=== PATIENT | male | born 1980 | race Caucasian/White ===

== ENCOUNTER 2016-12-29 15:28 | Emergency (ER) | payer BC, OTHER ==
[~2016-12-29 15:28] MED LIST: Augmentin PO; LISI-538 PO; LORT5TAB PO; MULT1TAB8 PO; NAPR500T2 PO; Vicodin PO
[2016-12-29] MEDS ORDERED: IBUPROFEN 800 MG TAB As Ordered ONE (16:23)
--- NOTE | 2016-12-29 17:33 | EDDOCDS ---
Nurse's Notes [facility] Name: Farshad Durbin Age: 36 yrs Sex: Male : 1980 Arrival Date: 12/29/2016 Time: 15:28 Bed PR Private MD: Diagnosis: Sprain of other specified parts of right knee Presentation: 12/29 15:36 Presenting complaint: Patient states: fell on the ice on and continued pain to pml right knee. Adult Sepsis Screening: The patient does not have new or worsening altered mentation. Patient's respiratory rate is less than 22. Systolic blood pressure is greater than 100. Patient has a qSOFA score of 0- Negative Sepsis Screen. Suicide/Homicide risk assessment- the patient denies having any suicidal and/or homicidal ideations and does not present with any other emotional, behavioral or mental health complaints. Status: Patient is not a customer service advisor or dependent. Transition of care: patient was not received from another setting of care. 15:36 Acuity: MARCY Level 4 pml 15:36 Method Of Arrival: Walkin/Carried/Asstd pml Triage Assessment: 15:37 General: Appears in no apparent distress, Behavior is appropriate for age, cooperative. pml Pain: Location: right knee Pain currently is 7 out of 10 on a pain scale. HIV screening NA for this visit Offered previously. Historical: - Allergies: Red Dye (Rash); - Home Meds: 1. losartan 25 mg oral tab 1 tab once daily - PMHx: Hypertension; - PSHx: Hernia repair; - Social history: No barriers to communication noted, The patient speaks fluent Ugandan, Speaks appropriately for age, Smoking status: Chewing Tobacco. - Family history: Not pertinent. - : The pt / caregiver states he / she is not on anticoagulants. Home medication list is obtained from the patient. - Exposure Risk Screening:: None identified. Screenin:31 Infection Control. bnb 17:29 Screening information is obtained from the patient. Fall risk: No risks identified. pml Assistance ADL's: requires no assistance with activities of daily living. Abuse/DV Screen: The patient / caregiver reports he/she is: not in a situation that causes fear, pain or injury. Nutritional screening: No deficits noted. Advance Directives: Currently, there is no health care proxy. home support is adequate. Assessment: 17:29 General: Appears in no apparent distress, Behavior is appropriate for age, cooperative. pml Pain: Location: right leg and right knee. Neurological: Level of Consciousness is awake, alert, Oriented to person, place, time. Cardiovascular: Capillary refill < 3 seconds. Respiratory: Airway is patent Respiratory effort is even, unlabored. Derm: Skin is pink, warm & dry. Vital Signs: 15:31 BP 154 / 104 RA Sitting (auto/lg); Pulse 94; Resp 18; Temp 98.9(O); Pulse Ox 100% on bnb R/A; Weight 79.38 kg; Height 5 ft. 11 in. (180.34 cm); Pain 7/10; 17:29 BP 150 / 95; Pulse 74; Resp 18; Temp 98.5(TE); Pulse Ox 99% on R/A; Pain 5/10; ar3 15:31 Body Mass Index 24.41 (79.38 kg, 180.34 cm) b Vitals: 15:29 Log In Time: December 29, 2016 at 15:27. [facility] ED Course: 15:29 Patient visited by Fior Ramirez PCA. bnb 15:29 Patient moved to Waiting bnb 15:32 Patient visited by Fior Ramirez PCA. bnb 15:36 Triage Initiated pml 15:37 Patient visited by Estrella Myers RN. pml 15:37 Patient moved to Triage 2 pml 16:10 Miguel Cm PA is PHCP. mo1 16:10 Fred Barrios MD is Attending Physician. mo1 16:18 Patient visited by Miguel Cm PA. mo1 16:24 Patient moved to TR1 pml 16:27 [facility] Payment Agreement was scanned into [employer] and attached to record. jp5 17:14 Patient moved to PD2 / 27 pml 17:15 Patient moved to PR1 / 25 rs3 17:23 Eddi Walker is Referral Physician. mo1 17:23 Morales Wiseman is Referral Physician. mo1 17:29 Patient visited by Raquel Powell PCA. ar3 17:29 The patient / caregiver is instructed regarding the plan of care and ED course. Patient pml has correct armband on for positive identification. Bed in low position. Call light in reach. 17:29 No IV's were initiated during this patient's visit. No procedures done that require pml assistance. Crutch training done. Knee immobilizer applied on right knee. Patient with positive distal sensation and brisk distal capillary refill after application. Administered Medications: 16:24 Drug: Ibuprofen 800 mg [ibuprofen 800 mg tablet (1 tabs)] Route: PO; pml 17:30 Follow up: Response: Pain is decreased pml Order Results: There are currently no results for this order. Outcome: 17:24 Discharge ordered by Provider. mo1 17:29 Discharge Assessment: Patient awake, alert and oriented x 3. No cognitive and/or pml functional deficits noted. Patient verbalized understanding of disposition instructions. patient administered narcotics - no. The following High Risk Discharge criteria are identified: None. Discharged to home ambulatory, with crutches. Condition: good Condition: stable. Discharge instructions given to patient, Instructed on discharge instructions, follow up and referral plans. Demonstrated understanding of instructions, Pt was receptive of discharge instructions/ teaching. No special radiology studies were completed. Property sent home with patient. 17:31 Patient left the ED. pml Signatures: Nati JcRN RN rs3 Raquel Powell, CELERY CUTTER CELERY CUTTER ar3 Estrella Myers RN RN pml Miguel Cm, WILBER PA mo1 Junior Joseph jp5 Fior Ramirez, CELERY CUTTER CELERY CUTTER bnb Corrections: (The following items were deleted from the chart) 16:19 15:37 Home Meds: lisinopril 20 mg Oral tab 1 tab once daily; pml pml MTDD
--- NOTE | 2016-12-29 17:33 | EDDOCDS ---
Physician Documentation [facility] Name: Farshad Durbin Age: 36 yrs Sex: Male : 1980 Arrival Date: 12/29/2016 Time: 15:28 Bed PR Private MD: Disposition: 12/29/16 17:24 Discharged to Home/Self Care. Impression: Sprain of other specified parts of right knee. - Condition is Stable. - Discharge Instructions: Knee Sprain, Knee Pain. - Prescriptions for Ibuprofen 800 mg Oral Tablet - take 1 tablet by ORAL route every 8 hours As needed take with food; 30 tablet. - Medication Reconciliation, Work Release Form - 3 day, Local Pharmacy Hours form. - Follow up: Eddi Walker; When: Call to arrange an appointment; Reason: Recheck today's complaints, Continuance of care. Follow up: Morales Wiseman; When: Call to arrange an appointment; Reason: Recheck today's complaints, Continuance of care. - Problem is new. - Symptoms are unchanged. Historical: - Allergies: Red Dye (Rash); - Home Meds: 1. losartan 25 mg oral tab 1 tab once daily - PMHx: Hypertension; - PSHx: Hernia repair; - Social history: No barriers to communication noted, The patient speaks fluent Northern Irish, Speaks appropriately for age, Smoking status: Chewing Tobacco. - Family history: Not pertinent. - : The pt / caregiver states he / she is not on anticoagulants. Home medication list is obtained from the patient. - Exposure Risk Screening:: None identified. Vital Signs: 12/29 15:31 BP 154 / 104 RA Sitting (auto/lg); Pulse 94; Resp 18; Temp 98.9(O); Pulse Ox 100% on bnb R/A; Weight 79.38 kg / 175 lbs; Height 5 ft. 11 in. (180.34 cm); Pain 7/10; 17:29 BP 150 / 95; Pulse 74; Resp 18; Temp 98.5(TE); Pulse Ox 99% on R/A; Pain 5/10; ar3 15:31 Body Mass Index 24.41 (79.38 kg, 180.34 cm) bnb MDM: 16:21 Ibuprofen 800 mg PO once ordered. mo1 16:22 Knee, Complete Ordered. EDMS 16:27 [facility] Payment Agreement was scanned into [employer] and attached to record. jp5 16:27 Financial registration complete. jp5 17:22 Knee Immobilizer ordered. mo1 17:22 Crutches ordered. mo1 Administered Medications: 16:24 Drug: Ibuprofen 800 mg [ibuprofen 800 mg tablet (1 tabs)] Route: PO; pml 17:30 Follow up: Response: Pain is decreased pml Signatures: Dispatcher [employer] EDEstrella Padron RN RN pml Miguel Cm PA PA mo1 Junior Joseph jp5 The chart was reviewed and I authenticate all verbal orders and agree with the evaluation and treatment provided.Corrections: (The following items were deleted from the chart) 16:19 15:37 Home Meds: lisinopril 20 mg Oral tab 1 tab once daily; pml pml Attachments: 16:27 [facility] Payment Agreement jp5 MTDD
--- NOTE | 2016-12-29 19:16 | REP ---
RIGHT KNEE SERIES, COMPLETE: 12/29/2016. Clinical history: Trauma. Findings: Five views are provided. There is no patellar subluxation or joint space narrowing on the sunrise view. Question of a small suprapatellar effusion on the lateral view. No patellar fracture. Medial lateral compartments without narrowing. There is no loose body or osteochondral defect. No avulsion. The exam unremarkable. Impression: 1. Question of a small joint effusion, suprapatellar bursa. Otherwise negative. Signed by Abdiaziz Traore MD 12/29/2016 07:08 P
--- NOTE | 2016-12-31 18:32 | EDDOCDS ---
Physician Documentation [facility] Name: Farshad Durbin Age: 36 yrs Sex: Male : 1980 Arrival Date: 12/29/2016 Time: 15:28 Bed PR Private MD: Disposition: 12/29/16 17:24 Discharged to Home/Self Care. Impression: Sprain of other specified parts of right knee. - Condition is Stable. - Discharge Instructions: Knee Sprain, Knee Pain. - Prescriptions for Ibuprofen 800 mg Oral Tablet - take 1 tablet by ORAL route every 8 hours As needed take with food; 30 tablet. - Medication Reconciliation, Work Release Form - 3 day, Local Pharmacy Hours form. - Follow up: Eddi Walker; When: Call to arrange an appointment; Reason: Recheck today's complaints, Continuance of care. Follow up: Morales Wiseman; When: Call to arrange an appointment; Reason: Recheck today's complaints, Continuance of care. - Problem is new. - Symptoms are unchanged. Historical: - Allergies: Red Dye (Rash); - Home Meds: 1. losartan 25 mg oral tab 1 tab once daily - PMHx: Hypertension; - PSHx: Hernia repair; - Social history: No barriers to communication noted, The patient speaks fluent Bahamian, Speaks appropriately for age, Smoking status: Chewing Tobacco. - Family history: Not pertinent. - : The pt / caregiver states he / she is not on anticoagulants. Home medication list is obtained from the patient. - Exposure Risk Screening:: None identified. Vital Signs: 12/29 15:31 BP 154 / 104 RA Sitting (auto/lg); Pulse 94; Resp 18; Temp 98.9(O); Pulse Ox 100% on bnb R/A; Weight 79.38 kg / 175 lbs; Height 5 ft. 11 in. (180.34 cm); Pain 7/10; 17:29 BP 150 / 95; Pulse 74; Resp 18; Temp 98.5(TE); Pulse Ox 99% on R/A; Pain 5/10; ar3 15:31 Body Mass Index 24.41 (79.38 kg, 180.34 cm) bnb MDM: 16:21 Ibuprofen 800 mg PO once ordered. mo1 16:22 Knee, Complete Ordered. EDMS 16:27 [facility] Payment Agreement was scanned into [employer] and attached to record. jp5 16:27 Financial registration complete. jp5 17:22 Knee Immobilizer ordered. mo1 17:22 Crutches ordered. mo1 12/30 14:03 T-Sheet-- Draft Copy was scanned into [employer] and attached to record. gb Administered Medications: 12/29 16:24 Drug: Ibuprofen 800 mg [ibuprofen 800 mg tablet (1 tabs)] Route: PO; pml 17:30 Follow up: Response: Pain is decreased pml Signatures: Dispatcher [employer] EDMS Gisel Torres, Reg Reg gb Estrella MyersRN RN pml Miguel Cm PA PA mo1 Junior Joseph jp5 The chart was reviewed and I authenticate all verbal orders and agree with the evaluation and treatment provided.Corrections: (The following items were deleted from the chart) 16:19 15:37 Home Meds: lisinopril 20 mg Oral tab 1 tab once daily; pml pml Attachments: 16:27 [facility] Payment Agreement jp5 12/30 14:03 T-Sheet-- Draft Copy gb Chart Complete MTDD
--- NOTE | 2016-12-31 18:32 | EDDOCDS ---
Nurse's Notes [facility] Name: Farshad Durbin Age: 36 yrs Sex: Male : 1980 Arrival Date: 12/29/2016 Time: 15:28 Bed PR Private MD: Diagnosis: Sprain of other specified parts of right knee Presentation: 12/29 15:36 Presenting complaint: Patient states: fell on the ice on and continued pain to pml right knee. Adult Sepsis Screening: The patient does not have new or worsening altered mentation. Patient's respiratory rate is less than 22. Systolic blood pressure is greater than 100. Patient has a qSOFA score of 0- Negative Sepsis Screen. Suicide/Homicide risk assessment- the patient denies having any suicidal and/or homicidal ideations and does not present with any other emotional, behavioral or mental health complaints. Status: Patient is not a cdl service technician or dependent. Transition of care: patient was not received from another setting of care. 15:36 Acuity: MARCY Level 4 pml 15:36 Method Of Arrival: Walkin/Carried/Asstd pml Triage Assessment: 15:37 General: Appears in no apparent distress, Behavior is appropriate for age, cooperative. pml Pain: Location: right knee Pain currently is 7 out of 10 on a pain scale. HIV screening NA for this visit Offered previously. Historical: - Allergies: Red Dye (Rash); - Home Meds: 1. losartan 25 mg oral tab 1 tab once daily - PMHx: Hypertension; - PSHx: Hernia repair; - Social history: No barriers to communication noted, The patient speaks fluent Anguillan, Speaks appropriately for age, Smoking status: Chewing Tobacco. - Family history: Not pertinent. - : The pt / caregiver states he / she is not on anticoagulants. Home medication list is obtained from the patient. - Exposure Risk Screening:: None identified. Screenin:31 Infection Control. bnb 17:29 Screening information is obtained from the patient. Fall risk: No risks identified. pml Assistance ADL's: requires no assistance with activities of daily living. Abuse/DV Screen: The patient / caregiver reports he/she is: not in a situation that causes fear, pain or injury. Nutritional screening: No deficits noted. Advance Directives: Currently, there is no health care proxy. home support is adequate. Assessment: 17:29 General: Appears in no apparent distress, Behavior is appropriate for age, cooperative. pml Pain: Location: right leg and right knee. Neurological: Level of Consciousness is awake, alert, Oriented to person, place, time. Cardiovascular: Capillary refill < 3 seconds. Respiratory: Airway is patent Respiratory effort is even, unlabored. Derm: Skin is pink, warm & dry. Vital Signs: 15:31 BP 154 / 104 RA Sitting (auto/lg); Pulse 94; Resp 18; Temp 98.9(O); Pulse Ox 100% on bnb R/A; Weight 79.38 kg; Height 5 ft. 11 in. (180.34 cm); Pain 7/10; 17:29 BP 150 / 95; Pulse 74; Resp 18; Temp 98.5(TE); Pulse Ox 99% on R/A; Pain 5/10; ar3 15:31 Body Mass Index 24.41 (79.38 kg, 180.34 cm) b Vitals: 15:29 Log In Time: December 29, 2016 at 15:27. [facility] ED Course: 15:29 Patient visited by Fior Ramirez PCA. bnb 15:29 Patient moved to Waiting bnb 15:32 Patient visited by Fior Ramirez PCA. bnb 15:36 Triage Initiated pml 15:37 Patient visited by Estrella Myers RN. pml 15:37 Patient moved to Triage 2 pml 16:10 Miguel Cm PA is PHCP. mo1 16:10 Fred Barrios MD is Attending Physician. mo1 16:18 Patient visited by Miguel Cm PA. mo1 16:24 Patient moved to TR1 pml 16:27 [facility] Payment Agreement was scanned into [employer] and attached to record. jp5 17:14 Patient moved to PD2 / 27 pml 17:15 Patient moved to PR1 / 25 rs3 17:23 Eddi Walker is Referral Physician. mo1 17:23 Morales Wiseman is Referral Physician. mo1 17:29 Patient visited by Raquel Powell PCA. ar3 17:29 The patient / caregiver is instructed regarding the plan of care and ED course. Patient pml has correct armband on for positive identification. Bed in low position. Call light in reach. 17:29 No IV's were initiated during this patient's visit. No procedures done that require pml assistance. Crutch training done. Knee immobilizer applied on right knee. Patient with positive distal sensation and brisk distal capillary refill after application. 19:36 Knee, Complete Returned. [facility] 12/30 14:03 T-Sheet-- Draft Copy was scanned into [employer] and attached to record. gb Administered Medications: 12/29 16:24 Drug: Ibuprofen 800 mg [ibuprofen 800 mg tablet (1 tabs)] Route: PO; pml 17:30 Follow up: Response: Pain is decreased pml Order Results: Radiology Order: Knee, Complete Test: Knee, Complete REASON FOR EXAMINATION: Trauma; RIGHT KNEE SERIES, COMPLETE: 12/29/2016.; ; Clinical history: Trauma.; ; Findings: Five views are provided. There is no patellar subluxation or joint; space narrowing on the sunrise view. Question of a small suprapatellar effusion; on the lateral view. No patellar fracture. Medial lateral compartments without; narrowing. There is no loose body or osteochondral defect. No avulsion. The; exam unremarkable.; ; Impression:; 1. Question of a small joint effusion, suprapatellar bursa. Otherwise negative.; ; ; ; ; Signed by; Abdiaziz Traore MD 12/29/2016 07:08 P; Outcome: 17:24 Discharge ordered by Provider. mo1 17:29 Discharge Assessment: Patient awake, alert and oriented x 3. No cognitive and/or pml functional deficits noted. Patient verbalized understanding of disposition instructions. patient administered narcotics - no. The following High Risk Discharge criteria are identified: None. Discharged to home ambulatory, with crutches. Condition: good Condition: stable. Discharge instructions given to patient, Instructed on discharge instructions, follow up and referral plans. Demonstrated understanding of instructions, Pt was receptive of discharge instructions/ teaching. No special radiology studies were completed. Property sent home with patient. 17:31 Patient left the ED. pml Signatures: Dispatcher [facility] Gisel Torres, Reg Reg gb Nati Jc RN RN rs3 Raquel Powell, VOCATIONAL SERVICES SPECIALIST VOCATIONAL SERVICES SPECIALIST ar3 Estrella Myers RN RN pml Miguel Cm PA PA mo1 Junior Joseph jp5 Ramirez, Fior, VOCATIONAL SERVICES SPECIALIST VOCATIONAL SERVICES SPECIALIST bnb Corrections: (The following items were deleted from the chart) 16:19 15:37 Home Meds: lisinopril 20 mg Oral tab 1 tab once daily; pml pml Chart Complete MTDD
--- NOTE | 2016-12-31 18:32 | EDDOCDS ---
Physician Documentation [facility] Name: Farshad Durbin Age: 36 yrs Sex: Male : 1980 Arrival Date: 12/29/2016 Time: 15:28 Bed PR Private MD: Disposition: 12/29/16 17:24 Discharged to Home/Self Care. Impression: Sprain of other specified parts of right knee. - Condition is Stable. - Discharge Instructions: Knee Sprain, Knee Pain. - Prescriptions for Ibuprofen 800 mg Oral Tablet - take 1 tablet by ORAL route every 8 hours As needed take with food; 30 tablet. - Medication Reconciliation, Work Release Form - 3 day, Local Pharmacy Hours form. - Follow up: Eddi Walker; When: Call to arrange an appointment; Reason: Recheck today's complaints, Continuance of care. Follow up: Morales Wiseman; When: Call to arrange an appointment; Reason: Recheck today's complaints, Continuance of care. - Problem is new. - Symptoms are unchanged. Historical: - Allergies: Red Dye (Rash); - Home Meds: 1. losartan 25 mg oral tab 1 tab once daily - PMHx: Hypertension; - PSHx: Hernia repair; - Social history: No barriers to communication noted, The patient speaks fluent Guatemalan, Speaks appropriately for age, Smoking status: Chewing Tobacco. - Family history: Not pertinent. - : The pt / caregiver states he / she is not on anticoagulants. Home medication list is obtained from the patient. - Exposure Risk Screening:: None identified. Vital Signs: 12/29 15:31 BP 154 / 104 RA Sitting (auto/lg); Pulse 94; Resp 18; Temp 98.9(O); Pulse Ox 100% on bnb R/A; Weight 79.38 kg / 175 lbs; Height 5 ft. 11 in. (180.34 cm); Pain 7/10; 17:29 BP 150 / 95; Pulse 74; Resp 18; Temp 98.5(TE); Pulse Ox 99% on R/A; Pain 5/10; ar3 15:31 Body Mass Index 24.41 (79.38 kg, 180.34 cm) bnb MDM: 16:21 Ibuprofen 800 mg PO once ordered. mo1 16:22 Knee, Complete Ordered. EDMS 16:27 [facility] Payment Agreement was scanned into [employer] and attached to record. jp5 16:27 Financial registration complete. jp5 17:22 Knee Immobilizer ordered. mo1 17:22 Crutches ordered. mo1 12/30 14:03 T-Sheet-- Draft Copy was scanned into [employer] and attached to record. gb Administered Medications: 12/29 16:24 Drug: Ibuprofen 800 mg [ibuprofen 800 mg tablet (1 tabs)] Route: PO; pml 17:30 Follow up: Response: Pain is decreased pml Signatures: Dispatcher [employer] EDMS Gisel Torres, Reg Reg gb Estrella MyersRN RN pml Miguel Cm PA PA mo1 Junior Joseph jp5 The chart was reviewed and I authenticate all verbal orders and agree with the evaluation and treatment provided.Corrections: (The following items were deleted from the chart) 16:19 15:37 Home Meds: lisinopril 20 mg Oral tab 1 tab once daily; pml pml Attachments: 16:27 [facility] Payment Agreement jp5 12/30 14:03 T-Sheet-- Draft Copy gb Chart Complete MTDD
== END 2016-12-29 17:31 | disposition home or self-care (01) ==
LOC: M ED 15:28
DX: S83.411A Sprain of medial collateral ligament of right knee, initial encounter (principal); S83.511A Sprain of anterior cruciate ligament of right knee, initial encounter; W00.9XXA Unspecified fall due to ice and snow, initial encounter; Y92.410 Unspecified street and highway as the place of occurrence of the external cause; Y93.89 Activity, other specified; Y99.8 Other external cause status; I10 Essential (primary) hypertension; F17.228 Nicotine dependence, chewing tobacco, with other nicotine-induced disorders; Z79.899 Other long term (current) drug therapy; Z91.09 Other allergy status, other than to drugs and biological substances

== ENCOUNTER → 2017-08-05 | Outpatient (REF) | payer BC ==
[~2017-08-05] MED LIST changes: -NAPR500T2 PO; +NAPR500T3 PO
[2017-08-05 12:53] LABS: ALBUMIN 3.9 GM/DL (3.2-5.2); ALBUMIN/GLOBULIN RATIO 1.34 (1.00-1.93); ALKALINE PHOSPHATASE 44 U/L (45-117); ALT/SGPT 24 U/L (12-78); ANION GAP 6 MEQ/L (8-16); AST/SGOT 16 U/L (15-37); BILIRUBIN,TOTAL 0.6 MG/DL (0.2-1.0); BLOOD UREA NITROGEN 17 MG/DL (7-18); CALCIUM LEVEL 8.9 MG/DL (8.5-10.1); CARBON DIOXIDE LEVEL 30 MEQ/L (21-32); CHLORIDE LEVEL 107 MEQ/L (98-107); CHOLESTEROL LEVEL 132 MG/DL (<200); CREATININE FOR GFR 0.92 MG/DL (0.70-1.30); GLOMERULAR FILTRATION RATE > 60.0 (>60); GLUCOSE, FASTING 83 MG/DL (70-105); POTASSIUM SERUM 3.8 MEQ/L (3.5-5.1); SODIUM LEVEL 143 MEQ/L (136-145); TOTAL PROTEIN 6.8 GM/DL (6.4-8.2); TRIGLYCERIDES LEVEL 103 MG/DL (<150)
== END ==
LOC: M LABDRAW1 10:29
PROVIDERS: ATTEND Emergency Medicine
DX: R73.01 Impaired fasting glucose (principal); I10 Essential (primary) hypertension

== ENCOUNTER → 2018-08-03 | Outpatient (REF) | payer BC ==
[2018-08-03 13:27] LABS: ALBUMIN 3.8 GM/DL (3.2-5.2); ALBUMIN/GLOBULIN RATIO 1.36 (1.00-1.93); ALKALINE PHOSPHATASE 39 U/L (45-117); ALT/SGPT 17 U/L (12-78); ANION GAP 7 MEQ/L (8-16); AST/SGOT 14 U/L (7-37); BILIRUBIN,TOTAL 0.8 MG/DL (0.2-1.0); BLOOD UREA NITROGEN 19 MG/DL (7-18); CALCIUM LEVEL 8.2 MG/DL (8.5-10.1); CARBON DIOXIDE LEVEL 28 MEQ/L (21-32); CHLORIDE LEVEL 105 MEQ/L (98-107); CHOLESTEROL LEVEL 127 MG/DL (<200); CHOLESTEROL RISK RATIO 3.628 (<5); CREATININE FOR GFR 0.87 MG/DL (0.70-1.30); GLOMERULAR FILTRATION RATE > 60.0 (>60); GLUCOSE, FASTING 73 MG/DL (70-100); HDL CHOLESTEROL 35 MG/DL (>40); LDL CHOLESTEROL 81 MG/DL (<100); NON-HDL-C 92 MG/DL; POTASSIUM SERUM 4.2 MEQ/L (3.5-5.1); SODIUM LEVEL 140 MEQ/L (136-145); TOTAL PROTEIN 6.6 GM/DL (6.4-8.2); TRIGLYCERIDES LEVEL 54 MG/DL (<150)
== END ==
LOC: M LABDRAW1 08:36
DX: I10 Essential (primary) hypertension (principal)
CPT/HCPCS: 80053

== ENCOUNTER 2018-11-03 15:42 | Emergency (ER) | payer BC | END 2018-11-03 17:03 | disposition home or self-care (01) | LOC: M ED 15:42 | DX: S43.402A Unspecified sprain of left shoulder joint, initial encounter (principal); X58.XXXA Exposure to other specified factors, initial encounter; Y92.099 Unspecified place in other non-institutional residence as the place of occurrence of the external cause; Y93.9 Activity, unspecified; Y99.9 Unspecified external cause status; I10 Essential (primary) hypertension; Z79.899 Other long term (current) drug therapy; Z91.02 Food additives allergy status | CPT/HCPCS: 73030 ==

== ENCOUNTER 2019-03-01 08:52 | Emergency (ER) | payer OTHER, BC ==
[~2019-03-01] VITALS: Ht 180.3 cm; Wt 79.5 kg
[~2019-03-01 08:52] MED LIST changes: +LOSA25TA14; +NAPR-885 PO; -NAPR500T3 PO
--- NOTE | 2019-03-01 10:04 | REP ---
Left knee five views : There is no fracture or dislocation. Mineralization and joint spaces are normal. There are no calcifications or foreign bodies. Impression: Negative left knee . Electronically Signed by Checo Cooper MD 03/01/2019 09:55 A
[2019-03-01 10:06] VITALS: BP 129/77
== END 2019-03-01 10:16 | disposition home or self-care (01) ==
LOC: M ED 08:52
DX: S89.92XA Unspecified injury of left lower leg, initial encounter (principal); X58.XXXA Exposure to other specified factors, initial encounter; Y92.89 Other specified places as the place of occurrence of the external cause; Y99.0 Civilian activity done for income or pay; I10 Essential (primary) hypertension; J45.909 Unspecified asthma, uncomplicated; Z91.048 Other nonmedicinal substance allergy status

== ENCOUNTER → 2019-07-26 | Outpatient (REF) | payer BC ==
[2019-07-26 12:50] LABS: ALT/SGPT 19 U/L (12-78); BILIRUBIN,TOTAL 0.5 MG/DL (0.2-1.0); BLOOD UREA NITROGEN 11 MG/DL (7-18); CARBON DIOXIDE LEVEL 28 MEQ/L (21-32); CHLORIDE LEVEL 105 MEQ/L (98-107); CHOLESTEROL LEVEL 132 MG/DL (<200); CHOLESTEROL RISK RATIO 2.869 (<5); GLOMERULAR FILTRATION RATE > 60.0 (>60); GLUCOSE, FASTING 88 MG/DL (70-100); HDL CHOLESTEROL 46 MG/DL (>40); LDL CHOLESTEROL 75 MG/DL (<100); NON-HDL-C 86 MG/DL; SODIUM LEVEL 142 MEQ/L (136-145); TOTAL PROTEIN 6.7 GM/DL (6.4-8.2); TRIGLYCERIDES LEVEL 55 MG/DL (<150)
== END ==
LOC: M LABDRAW1 12:07
PROVIDERS: ATTEND Physician Assistant
DX: I10 Essential (primary) hypertension (principal)

== ENCOUNTER → 2020-10-10 | Outpatient (REF) | payer BC ==
[2020-10-10 17:33] LABS: HEMOGLOBIN A1c 5.3 %
[2020-10-10 17:54] LABS: ALBUMIN 4.1 GM/DL (3.2-5.2); ALT/SGPT 21 U/L (12-78); BILIRUBIN,TOTAL 0.4 MG/DL (0.2-1.0); BLOOD UREA NITROGEN 18 MG/DL (7-18); CALCIUM LEVEL 9.2 MG/DL (8.5-10.1); CARBON DIOXIDE LEVEL 30 MEQ/L (21-32); CHLORIDE LEVEL 104 MEQ/L (98-107); CHOLESTEROL LEVEL 181 MG/DL (<200); CHOLESTEROL RISK RATIO 4.763 (<5); CREATININE FOR GFR 1.15 MG/DL (0.70-1.30); FREE T4 0.99 NG/DL (0.76-1.46); GLOMERULAR FILTRATION RATE > 60.0 (>60); GLUCOSE, FASTING 90 MG/DL (70-100); HDL CHOLESTEROL 38 MG/DL (>40); LDL CHOLESTEROL 96 MG/DL (<100); NON-HDL-C 143 MG/DL; POTASSIUM SERUM 4.5 MEQ/L (3.5-5.1); SODIUM LEVEL 140 MEQ/L (136-145); TOTAL PROTEIN 7.5 GM/DL (6.4-8.2); TRIGLYCERIDES LEVEL 235 MG/DL (<150)
== END ==
LOC: M LABDRWAD 16:50
PROVIDERS: ATTEND Nurse Practitioner Family
DX: Z00.00 Encounter for general adult medical examination without abnormal findings (principal)

== ENCOUNTER → 2021-12-04 | Outpatient (CLI) | payer BC ==
[~2021-12-04] MED LIST changes: -LISI-538 PO; +LISI20TA33 PO; +LOSA25TA13; -LOSA25TA14
[2021-12-04 18:22] LABS: ALBUMIN 4.1 GM/DL (3.2-5.2); ALT/SGPT 24 U/L (12-78); BILIRUBIN,TOTAL 0.3 MG/DL (0.2-1.0); BLOOD UREA NITROGEN 15 MG/DL (7-18); CALCIUM LEVEL 9.3 MG/DL (8.5-10.1); CARBON DIOXIDE LEVEL 31 MEQ/L (21-32); CHLORIDE LEVEL 108 MEQ/L (98-107); CHOLESTEROL LEVEL 144 MG/DL (<200); CREATININE FOR GFR 0.93 MG/DL (0.70-1.30); GLOMERULAR FILTRATION RATE > 60.0 (>60); GLUCOSE, FASTING 80 MG/DL (70-100); HDL CHOLESTEROL 50 MG/DL (>40); LDL CHOLESTEROL 77 MG/DL (<100); NON-HDL-C 94 MG/DL; POTASSIUM SERUM 4.5 MEQ/L (3.5-5.1); SODIUM LEVEL 140 MEQ/L (136-145); TOTAL PROTEIN 6.7 GM/DL (6.4-8.2); TRIGLYCERIDES LEVEL 86 MG/DL (<150)
== END ==
LOC: M LAB 16:42
PROVIDERS: ATTEND Nurse Practitioner Family
DX: I10 Essential (primary) hypertension (principal)

== ENCOUNTER → 2023-02-24 | Outpatient (CLI) | payer BC ==
[2023-02-24 13:17] LABS: ALBUMIN 3.9 G/DL (3.2-5.2); ALKALINE PHOSPHATASE 43 U/L (46-116); ALT/SGPT 17 U/L (7.0-40); AST/SGOT 16 U/L (<34); BILIRUBIN,TOTAL 0.5 MG/DL (0.3-1.2); BLOOD UREA NITROGEN 16 MG/DL (9-23); CALCIUM LEVEL 8.8 MG/DL (8.5-10.1); CARBON DIOXIDE LEVEL 25 MMOL/L (20-31); CHLORIDE LEVEL 107 MMOL/L (98-107); CHOLESTEROL LEVEL 135 MG/DL (<200); CREATININE FOR GFR 0.86 MG/DL (0.70-1.30); GLOMERULAR FILTRATION RATE > 60.0 (>60); GLUCOSE, FASTING 104 MG/DL (60-100); HDL CHOLESTEROL 40.9 MG/DL (>40); LDL CHOLESTEROL 77.5 MG/DL (<100); NON-HDL-C 94.1 MG/DL; POTASSIUM SERUM 4.2 MMOL/L (3.5-5.1); SODIUM LEVEL 139 MMOL/L (136-145); TOTAL PROTEIN 6.4 G/DL (5.7-8.2); TRIGLYCERIDES LEVEL 83 MG/DL (<150)
== END ==
LOC: M WUC 09:19
PROVIDERS: ATTEND Nurse Practitioner Family
DX: I10 Essential (primary) hypertension (principal)

== ENCOUNTER 2024-12-06 08:13 | Emergency (ER) | payer BC ==
[~2024-12-06] VITALS: Ht 177.8 cm; Wt 79.8 kg
[2024-12-06] MEDS ORDERED: THERTAB52 PO (10:39)
[2024-12-06] MEDS ORDERED: HOME MED LIST COMPLETE! XX SCH (10:40)
[2024-12-06] MEDS: METOCLOPRAMIDE INJ 10MG/2ML VIAL IV ONE (10:54)
[2024-12-06] MEDS: KETOROLAC 30 MG/ML 1ML VIAL IV ONE (10:56)
[2024-12-06] MEDS: diphenhydrAMINE 50MG/ML VIAL IV ONE (10:58)
[2024-12-06] MEDS: NS (Normal Saline) 0.9% 1,000 ML IV ONE (10:59)
[2024-12-06 11:06] LABS: BASO % 0.8 % (0.0-1.0); EOS # 0.1 10^3/uL (0.0-0.5); EOS % 1.6 % (0.0-3.0); HEMATOCRIT 38.9 % (42.0-52.0); HEMOGLOBIN 13.3 g/dl (13.5-17.5); LYMPH # 1.4 10^3/uL (1.5-5.0); LYMPH % 39.2 % (24.0-44.0); MEAN CORPUSCULAR HEMOGLOBIN 31.3 pg (27.0-33.0); MEAN CORPUSCULAR HGB CONC 34.2 g/dl (32.0-36.5); MEAN CORPUSCULAR VOLUME 91.5 fl (80.0-96.0); MONO # 0.2 10^3/uL (0.0-0.8); MONO % 5.8 % (2.0-8.0); NEUTROPHILS # 1.9 10^3/uL (1.5-8.5); NEUTROPHILS % 52.3 % (36.0-66.0); PLATELET COUNT, AUTOMATED 230 10^3/uL (150-450); RED BLOOD COUNT 4.25 10^6/uL (4.30-6.10); WHITE BLOOD COUNT 3.7 10^3/uL (4.0-10.0)
[2024-12-06 11:12] LABS: ERYTHROCYTE SEDIMENTATION RATE 4 mm/hr (0-15)
[2024-12-06 11:33] LABS: BLOOD UREA NITROGEN 10 MG/DL (9-23); C REACTIVE PROTEIN QUANTITATIV < 0.50 MG/DL (<1.0); CARBON DIOXIDE LEVEL 31 MMOL/L (20-31); CHLORIDE LEVEL 108 MMOL/L (98-107); CREATININE FOR GFR 1.02 MG/DL (0.70-1.30); GLOMERULAR FILTRATION RATE > 60.0 (>60); GLUCOSE, FASTING 89 MG/DL (60-100); MAGNESIUM LEVEL 2.4 MG/DL (1.8-2.4); POTASSIUM SERUM 4.3 MMOL/L (3.5-5.1); SODIUM LEVEL 144 MMOL/L (136-145)
[2024-12-06 12:31] VITALS: BP 121/85; TEMP 97; O2SAT 98
== END 2024-12-06 12:39 | disposition home or self-care (01) ==
LOC: M ED 08:13
DX: G43.909 Migraine, unspecified, not intractable, without status migrainosus (principal); I10 Essential (primary) hypertension; J45.909 Unspecified asthma, uncomplicated; Z91.018 Allergy to other foods; Z79.899 Other long term (current) drug therapy
CPT/HCPCS: 70450; 80048; 83735; 85025; 85652; 86140; 93005; 96361; 96374; 96375; 99284; J1100; J1200; J1885; J2765